=== PATIENT | male | born 1955 | race Two or more races ===

== ENCOUNTER 2023-10-30 09:10 | Outpatient (RCR) | payer OTHER, SELFPAY | END 2023-12-02 11:53 | disposition home or self-care (01) | LOC: HO.WCC 09:10 | PROVIDERS: PCP Registered Nurse; Visit Provider Surgery | DX: I87.313 Chronic venous hypertension (idiopathic) with ulcer of bilateral lower extremity (principal); L97.822 Non-pressure chronic ulcer of other part of left lower leg with fat layer exposed; L97.812 Non-pressure chronic ulcer of other part of right lower leg with fat layer exposed; Z85.46 Personal history of malignant neoplasm of prostate; Z92.25 Personal history of immunosuppression therapy; Z87.891 Personal history of nicotine dependence; Z92.3 Personal history of irradiation; Z79.01 Long term (current) use of anticoagulants; Z79.52 Long term (current) use of systemic steroids; Z79.899 Other long term (current) drug therapy | CPT/HCPCS: 11042 ==